=== PATIENT | female | born 1990 ===

== ENCOUNTER 2016-10-30 17:51 | Emergency (ER) | payer MEDICAID ==
[2016-10-30 18:07] VITALS: BMI 17.6
--- NOTE | 2016-10-30 18:16 | ED PDOC ---
Arrival/HPI - General Time Seen by Provider: 10/30/16 18:12 Historian: Patient - History of Present Illness Narrative History of Present Illness (Text): 10/30/16 18:13 This 26 yo female presents to this ED c/o left great toe ingrown nail x 4 days. Patient admits similar symptoms in the past, and patient saw a rooming house inspector. Patient denies sob. cp, trauma , weakness, paresthesias, or discharge. Time/Duration: < week Quality: Aching Context: Home Past Medical History - Provider Review Nursing Documentation Reviewed: Yes - Past History Past History: Non-Contributing - Infectious Disease Hx of Infectious Diseases: None - Psychiatric Hx Substance Use: No - Anesthesia Hx Anesthesia: Yes Hx Anesthesia Reactions: No Hx Malignant Hyperthermia: No Family/Social History - Physician Review Nursing Documentation Reviewed: Yes Family/Social History: No Known Family HX Smoking Status: Former Smoker Hx Alcohol Use: No Hx Substance Use: No Allergies/Home Meds Allergies/Adverse Reactions: Allergies ondansetron HCl [From Zofran (as hydrochloride)] Allergy (Verified 06/13/16 13: 16) RASH Review of Systems - Review of Systems Constitutional: Normal. absent: Fatigue, Weight Change, Fevers, Night Sweats Eyes: Normal ENT: Normal Respiratory: Normal Cardiovascular: Normal Gastrointestinal: Normal Genitourinary Female: Normal Musculoskeletal: Other (left ingrown toenail) Skin: Normal Neurological: Normal Endocrine: Normal Hemo/Lymphatic: Normal Psychiatric: Normal Physical Exam Vital Signs Temp Pulse Resp BP Pulse Ox 10/30/16 18:07 98.2 F 72 16 102/67 98 Temperature: Afebrile Blood Pressure: Normal Pulse: Regular Respiratory Rate: Normal Appearance: Positive for: Well-Appearing, Non-Toxic, Comfortable Pain Distress: None Mental Status: Positive for: Alert and Oriented X 3 - Systems Exam Head: Present: Atraumatic, Normocephalic Pupils: Present: PERRL Extroacular Muscles: Present: EOMI Conjunctiva: Present: Normal Mouth: Present: Moist Mucous Membranes Neck: Present: Normal Range of Motion. No: Meningeal Signs Upper Extremity: Present: Normal Inspection, Normal ROM, Neurovascularly Intact , Capillary Refill < 2s Lower Extremity: Present: NORMAL PULSES, Normal ROM, Neurovascularly Intact, Capillary Refill < 2 s, Other ((+) left 1st toe, ingrown nail.). No: Edema, CALF TENDERNESS Neurological: Present: GCS=15, CN II-XII Intact, Motor Func Grossly Intact, Normal Sensory Function, Normal Cerebellar Funct, Gait Normal, Memory Normal Skin: Present: Warm, Dry, Normal Color. No: Rashes Psychiatric: Present: Alert, Oriented x 3 Medical Decision Making ED Course and Treatment: 10/30/16 18:56 Re-evaluation. Patient feels better. Discussed results and plan with patient who expresses understanding. All questions answered and there is agreement with the plan to discharge home with instructions. Patient stable for discharge. Return if symptoms persist or worsen Re-evaluation Time: 18:56 Reassessment Condition: Re-examined, Improved - Medication Orders Current Medication Orders: Discontinued Medications Clindamycin HCl (Cleocin) 300 mg PO STAT STA PRN Reason: Protocol Stop: 10/30/16 18:21 - Procedure PROCEDURE NOTE (Text): 10/30/16 18:56 Under sterile technique. Toe verve block was performed, with 3 cc Lidocaine without EP. Partial removal of toe nail was performe. Patient tolerated procedure well. Disposition/Present on Arrival - Present on Arrival Any Indicators Present on Arrival: No History of DVT/PE: No History of Uncontrolled Diabetes: No Urinary Catheter: No History Surgical Site Infection Following: None - Disposition Have Diagnosis and Disposition been Completed?: Yes Diagnosis: Ingrown toenail Disposition: HOME/ ROUTINE Disposition Time: 18:57 Patient Plan: Discharge Condition: GOOD Discharge Instructions (ExitCare): Toenail/Fingernail Removal (ED) Additional Instructions: Call private doctor for follow up visit in 1-2 days. Take medication as instructed. Clean wound daily with soap and water. return to emergency if symptoms worsen. Call private Collar Shaper Operator or clinic for revaluation Prescriptions: Clindamycin [Cleocin] 300 mg PO TID #20 cap Referrals: Podiatry Clinic [Outside] - Follow up with primary Inspector [employer]ing [employer] [Outside] - Follow up with primary
[2016-10-30 18:23] VITALS: BP 102/67; PULSE 72; RESP 16; TEMP 98.2; O2SAT 98
== END 2016-10-30 19:35 | disposition home or self-care (01) ==
LOC: ED 17:51
DX: L60.0 Ingrowing nail (principal)

== ENCOUNTER 2018-01-07 19:39 | Emergency (ER) | payer MEDICAID ==
[2018-01-07 19:39] VITALS: BMI 17.6
[2018-01-07 20:00] VITALS: RESP 18; O2SAT 99
--- NOTE | 2018-01-07 21:00 | ED PDOC ---
Arrival/HPI - General Chief Complaint: Abdominal Pain Time Seen by Provider: 01/07/18 20:13 Historian: Patient - History of Present Illness Narrative History of Present Illness (Text): 01/07/18 20:58 27yo female with no pmhx who present with complaint of pelvic pain x 2weeks. Also reports constipation for few days and intermittent chest pain x 2weeks. states chest pain is with deep inspiration. She denies fever, chills, nausea, vomiting, dysuria, urinary frequency/urgency, fever, back pain, cough, trauma, any other complaint. Past Medical History - Provider Review Nursing Documentation Reviewed: Yes - Past History Past History: Non-Contributing - Infectious Disease Hx of Infectious Diseases: None - Psychiatric Hx Substance Use: No - Anesthesia Hx Anesthesia: Yes Hx Anesthesia Reactions: No Hx Malignant Hyperthermia: No Family/Social History - Physician Review Nursing Documentation Reviewed: Yes Family/Social History: Unknown Family HX Smoking Status: Former Smoker Hx Alcohol Use: No Hx Substance Use: No Allergies/Home Meds Allergies/Adverse Reactions: Allergies ondansetron HCl [From Zofran (as hydrochloride)] Allergy (Verified 10/30/16 19: 27) RASH Review of Systems - Physician Review All systems were reviewed & negative as marked: Yes - Review of Systems Constitutional: Normal Eyes: Normal ENT: Normal Respiratory: Normal Cardiovascular: Chest Pain. absent: Palpitations, Edema, Calf Pain Gastrointestinal: Abdominal Pain, Constipation. absent: Diarrhea, Nausea, Vomiting, Hematochezia, Hematemesis Genitourinary Female: Normal Musculoskeletal: Normal Skin: Normal Neurological: Normal Endocrine: Normal Hemo/Lymphatic: Normal Psychiatric: Normal Physical Exam Vital Signs Reviewed: Yes Vital Signs Temp Pulse Resp BP Pulse Ox 01/07/18 22:53 98.7 F 85 18 108/72 99 01/07/18 21:39 98.6 F 87 18 110/76 99 01/07/18 19:59 98.7 F 99 H 18 111/73 99 Temperature: Afebrile Blood Pressure: Normal Pulse: Regular Respiratory Rate: Normal Appearance: Positive for: Well-Appearing, Non-Toxic, Comfortable Pain Distress: None Mental Status: Positive for: Alert and Oriented X 3 - Systems Exam Head: Present: Atraumatic, Normocephalic Pupils: Present: PERRL Extroacular Muscles: Present: EOMI Conjunctiva: Present: Normal Mouth: Present: Moist Mucous Membranes Neck: Present: Normal Range of Motion Respiratory/Chest: Present: Clear to Auscultation, Good Air Exchange. No: Respiratory Distress, Accessory Muscle Use, Wheezes, Decreased Breath Sounds, Rales, Retracting, Rhonchi Cardiovascular: Present: Regular Rate and Rhythm, Normal S1, S2. No: Murmurs Abdomen: Present: Other (Soft). No: Tenderness, Distention, Peritoneal Signs, Rebound, Guarding, McBurney's Point Tender, Rovsing's Sign Present Back: Present: Normal Inspection Upper Extremity: Present: Normal Inspection. No: Cyanosis, Edema Lower Extremity: Present: Normal Inspection. No: Edema Neurological: Present: GCS=15, CN II-XII Intact, Speech Normal Skin: Present: Warm, Dry, Normal Color. No: Rashes Psychiatric: Present: Alert, Oriented x 3, Normal Insight, Normal Concentration Medical Decision Making ED Course and Treatment: 01/08/18 01:06 PT in ED for stated history. She was hemodynamically stable. CXR NAD EKG NSR @ 98bpm Transvaginal US FINDINGS: Uterus/cervix: The uterus is 7 x 4 x 4 cm. Endometrial stripe thickness is 1 cm. Cervix closed 3.2 cm the No myometrial mass. Right ovary: Right ovary is 1.8 x 1.4 x 1.6 cm. Right ovary contains small simple physiologic follicles. Normal blood flow. Left ovary: Left ovary is 3.2 x 1.8 x 1.7 cm. Left ovary contains a small simple physiologic follicles. Normal blood flow. Free fluid: Small free fluid in the pelvis. IMPRESSION: There is a very small amount of physiologic free pelvic fluid present. No torsion or mass. Small physiologic follicles bilaterally. Lab was unremarkable. Potassium was repleted. She had UTI and was treated with Keflex. She was given Mag Citrate Result was DW the pt and she was referred to Information Clerk Cashier. TRT ED for any new or worsening symptoms. - Lab Interpretations Lab Results: 01/07/18 21:31 01/07/18 21:31 Lab Results 01/07/18 21:31: Sodium 143, Potassium 3.3 L, Chloride 104, Carbon Dioxide 25, Anion Gap 18, BUN 17, Creatinine 0.6 L, Est GFR ( Amer) > 60, Est GFR ( Non-Af Amer) > 60, Random Glucose 95, Calcium 9.7, Magnesium 2.0, Total Bilirubin 1.1, AST 22, ALT 21, Alkaline Phosphatase 63, Total Protein 8.4 H, Albumin 5.0 H, Globulin 3.4, Albumin/Globulin Ratio 1.5, Lipase 179 01/07/18 21:31: PT 11.4, INR 1.00, APTT 33.5 01/07/18 21:31: WBC 9.8, RBC 3.95, Hgb 12.8, Hct 36.6, MCV 92.7, MCH 32.4, MCHC 35.0, RDW 12.7, Plt Count 150, MPV 10.7, Gran % 72.5 H, Lymph % (Auto) 20.6 L, [place] % (Auto) 5.3, Eos % (Auto) 1.4 L, Baso % (Auto) 0.2, Gran # 7.09 H, Lymph # (Auto) 2.0, [place] # (Auto) 0.5, Eos # (Auto) 0.1, Baso # (Auto) 0.02 01/07/18 20:49: Urine Color Yellow, Urine Appearance Clear, Urine pH 6.0, Ur Specific [place] 1.020, Urine Protein Negative, Urine Glucose (UA) Negative, Urine Ketones Negative, Urine Blood Negative, Urine Nitrate Negative, Urine Bilirubin Negative, Urine Urobilinogen 0.2, Ur Leukocyte Esterase Small H, Urine RBC 0 - 2, Urine WBC 5 - 10, Ur Epithelial Cells 4 - 5, Urine Bacteria Mod - RAD Interpretation Radiology Orders: 01/07/18 20:31 TRANSVAGINAL [US] Stat 01/07/18 21:39 CHEST TWO VIEWS (PA/LAT) [RAD] Stat - Medication Orders Current Medication Orders: Discontinued Medications Cephalexin Monohydrate (Keflex) 500 mg PO STAT STA PRN Reason: Protocol Stop: 01/07/18 21:36 Last Admin: 01/07/18 22:30 Dose: 500 mg Magnesium Citrate (Citrate Of Mag) 300 ml PO ONCE ONE Stop: 01/07/18 21:58 Last Admin: 01/07/18 22:31 Dose: 300 ml Potassium Chloride (K-Dur 20 Meq Er Tab) 40 meq PO STAT STA Stop: 01/07/18 22:12 Last Admin: 01/07/18 22:30 Dose: 40 meq Disposition/Present on Arrival - Present on Arrival Any Indicators Present on Arrival: No History of DVT/PE: No History of Uncontrolled Diabetes: No Urinary Catheter: No History of Decub. Ulcer: No History Surgical Site Infection Following: None - Disposition Have Diagnosis and Disposition been Completed?: Yes Diagnosis: Constipation, UTI (urinary tract infection), Chest pain Disposition: HOME/ ROUTINE Disposition Time: 22:00 Patient Plan: Discharge Condition: STABLE Discharge Instructions (ExitCare): Urinary Tract Infections in Adults, Constipation in Adults, Chest Pain, Chest Pain (ED) Additional Instructions: Follow up with your Doctor/tar pot man Increase your fiber intake Return to ED for any new or worsening symptoms Prescriptions: Cephalexin [Keflex] 500 mg PO TID #21 capsule Ibuprofen [Motrin Tab] 600 mg PO Q6 #15 tab Polyethylene Glycol 3350 [Miralax] 17 % PO DAILY #100 ml Referrals: Siddhartha Pinon MD [Staff Provider] - Follow up with primary Soniya Garnica MD [Staff Provider] - Follow up with primary Forms: [employer] (Frisian)
[2018-01-07 21:23] LABS: URINE APPEARANCE CLEAR (CLEAR); URINE BILIRUBIN NEGATIVE (NEGATIVE); URINE BLOOD NEGATIVE (NEGATIVE); URINE COLOR YELLOW (YELLOW); URINE GLUCOSE (UA) NEGATIVE (NEGATIVE); URINE LEUKOCYTE ESTERASE SMALL Leu/uL (NEGATIVE); URINE PROTEIN NEGATIVE mg/dL (<30 mg/dL); URINE UROBILINOGEN 0.2 E.U./dL (<1 E.U./dL)
[2018-01-07 21:34] LABS: URINE BACTERIA MOD (NEG); URINE RBC 0 - 2 /hpf (0-2)
[2018-01-07 21:45] LABS: BASO # 0.02 K/mm3 (0.0-2.0); BASO % 0.2 % (0.0-3.0); EOS # 0.1 (0.0-0.7); EOS % 1.4 % (1.5-5.0); GRAN # 7.09 (1.4-6.5); GRAN % 72.5 % (50.0-68.0); HEMOGLOBIN 12.8 g/dL (12.0-16.0); LYMPH % 20.6 % (22.0-35.0); MEAN CELL VOLUME 92.7 fl (80.0-105.0); MEAN CORPUSCULAR HEMOGLOBIN 32.4 pg (25.0-35.0); MEAN PLATELET VOLUME 10.7 fl (7.0-11.0); MONO # 0.5 (0.1-0.6); MONO % 5.3 % (1.0-6.0); RBC 3.95 10^6/uL (3.5-6.1); RED CELL DISTRIBUTION WIDTH 12.7 % (11.5-14.5); WHITE BLOOD COUNT 9.8 10^3/ul (4.5-11.0)
[2018-01-07 21:46] LABS: PROTHROMBIN TIME 11.4 SECONDS (9.4-12.5)
[2018-01-07 21:48] LABS: PARTIAL THROMBOPLASTIN TIME 33.5 Seconds (25.1-36.5)
[2018-01-07] MEDS ORDERED: Magnesium Citrate Oral SOL (300 ml) PO ONE (21:57)
[2018-01-07 22:08] LABS: ALB/GLOB RATIO 1.5 (1.1-1.8); ALT/SGPT 21 U/L (7-56); AST/SGOT 22 U/L (14-36); BLOOD UREA NITROGEN 17 mg/dL (7-21); CALCIUM 9.7 mg/dL (8.4-10.5); GFR AFRICAN-AMERICAN > 60; GFR NON-AFRICAN AMERICAN > 60; LIPASE 179 U/L (23-300)
[2018-01-07] MEDS ORDERED: Potassium Chloride 20 mEq ER Tab PO STA (22:11)
[2018-01-07 22:56] VITALS: BP 108/72; PULSE 85; TEMP 98.7
--- NOTE | 2018-01-08 07:53 | RAD ---
Date of service: 01/07/2018 HISTORY: chest pain COMPARISON: No prior. TECHNIQUE: Chest PA and lateral FINDINGS: LUNGS: No active pulmonary disease. PLEURA: No significant pleural effusion identified. No pneumothorax apparent. CARDIOVASCULAR: Normal. OSSEOUS STRUCTURES: No significant abnormalities. VISUALIZED UPPER ABDOMEN: Normal. OTHER FINDINGS: None. IMPRESSION: No active disease.
--- NOTE | 2018-01-08 09:07 | CARD ---
APPROVED REPORT Date of service: 01/07/2018 EKG Measurement Heart [id number] <Conclusion> Normal sinus rhythm Nonspecific ST abnormality Abnormal ECG
--- NOTE | 2018-01-08 14:33 | US ---
Date of service: 01/07/2018 HISTORY: pelvic pain COMPARISON: None available. TECHNIQUE: Transvaginal FINDINGS: UTERUS: Measures 6.76 x 3.79 x 3.66 cm. Normal in size and appearance. No fibroid or other mass lesion seen. ENDOMETRIUM: Measures 9 mm in diameter. Unremarkable. CERVIX: No cervical abnormality identified. RIGHT OVARY: Measures 1.82 x 1.35 x 1.59 cm. No solid mass. Normal flow. LEFT OVARY: Measures 3.21 x 1.75 x 1.73 cm. No solid mass. Normal flow. FREE FLUID: Minimal free fluid OTHER FINDINGS: The report concurs with the preliminary [facility] report IMPRESSION: Unremarkable pelvic ultrasound.
== END 2018-01-07 22:53 | disposition home or self-care (01) ==
LOC: ED 19:39
DX: N39.0 Urinary tract infection, site not specified (principal); K59.00 Constipation, unspecified; R07.9 Chest pain, unspecified